=== PATIENT | male | born 1950 | race Caucasian/White ===

== ENCOUNTER → 2016-10-11 | Outpatient (CLI) | payer MEDICARE ==
--- NOTE | 2016-10-11 09:59 | RAD ---
Indication screening for abdominal aortic aneurysm. At risk for same. Grayscale images were obtained. The examination was targeted to the abdominal aorta. No prior imaging is available. The abdominal aorta, throughout its course, has a diameter under 3 cm. No aneurysm is seen. IMPRESSION: Negative study for abdominal aortic aneurysm
== END | disposition home or self-care (01) ==
LOC: US 09:11
PROVIDERS: ATTEND Family Medicine
DX: Z00.01 Encounter for general adult medical examination with abnormal findings (principal)
CPT/HCPCS: 76770

== ENCOUNTER → 2020-02-03 | Outpatient (CLI) | payer MEDICARE ==
--- NOTE | 2020-02-04 15:09 | SLEEP ---
DATE OF STUDY: 02/03/2020 SLEEP STUDY REFERRING PHYSICIAN: MD Drake Valdez patient is a 69-year-old who weighs 270 pounds with a BMI of 41. The patient's Lasara score was 10. The patient underwent split night study performed at [facility]. During the night study, the patient spent 467 minutes in bed and slept for 345 minutes with a sleep efficiency of 74%. Sleep latency was 18 minutes with a REM latency of 18 minutes as well, which was short. Overall, sleep architecture showed increased stage 1 and stage 2 sleep, normal slow wave and reduced REM sleep, which was 6% of total sleep time. During the initial diagnostic portion of the study, the patient slept for 77 minutes. During that time, the patient had 1 obstructive apnea, 1 mixed apnea, no central apneas and 61 hypopneas. The patient's AHI was 49 per hour. The patient did not have any supine or REM sleep. EKG monitoring revealed normal sinus rhythm, average heart rate 82 beats per minute. No sustained arrhythmias observed. Nocturnal oximetry study revealed a mean oxygen saturation of 93% with the lowest of 80%. Twenty four minutes were spent with oxygen saturation between 80% and 89%. PLMS were seen at index of 26 per hour, but only 1 per hour caused EEG arousals. The patient met the criteria for CPAP initiation. He was started at 7 cm water and titrated up to 15 cm water. At the final pressure, the patient slept for 71 minutes. The patient had no supine or lateral sleep. The patient's AHI was reduced to 2 per hour and oxygen saturation remained above 90%. The patient used medium size nasal pillows. IMPRESSION: 1. Severe obstructive sleep apnea at an AHI of 49 per hour. 2. Nocturnal hypoxia secondary to obstructive sleep apnea, but resolved with CPAP. 3. Moderate periodic limb movements without any significant EEG arousals. This does not need to be treated unless the patient has symptoms of restless legs during the day. RECOMMENDATIONS: 1. CPAP at 15 cm water completely eliminated the patient's sleep apnea and should be used on a nightly basis. 2. Follow up in 4-6 weeks to assess compliance with CPAP and to document clinical improvement. 3. Weight loss is strongly advised. 4. Avoid [employer] depressants. 5. Cautioned regarding driving until symptoms of sleep apnea resolve with the use of CPAP. OLENA STRONG MD DR: ODETTE/flynn JOB#: [id number] / [id number] ROSA Chery MD
== END ==
LOC: RT 19:11
PROVIDERS: ATTEND Family Medicine
DX: G47.33 Obstructive sleep apnea (adult) (pediatric) (principal); G47.34 Idiopathic sleep related nonobstructive alveolar hypoventilation
CPT/HCPCS: 95810